=== PATIENT | female | born 1940 | race Caucasian/White ===

== ENCOUNTER → 2017-06-22 16:35 | Outpatient (CLI) | payer MEDICARE, OTHER ==
[2015-06-14 15:01] VITALS: BMI 37.5
[~2017-06-22 16:35] MED LIST: ACETAMINOPHEN500 M1 PO; ACTOS30 MG PO; AVAPRO300 MG PO; COUMADIN10 MG PO; CRESTOR20 MG PO; GLIPIZIDE10 MG PO; HYDROCODONE-APA1 TAB PO; PRILOSEC20 MG PO; XARELTO15 MG; ZIAC 10-6.25 MG1 TAB PO; ZYRTEC10 MG PO
== END | disposition home or self-care (01) ==
LOC: D.MAMMO 11:15
DX: Z12.31 Encounter for screening mammogram for malignant neoplasm of breast (principal)

== ENCOUNTER → 2017-07-16 16:54 | Outpatient (CLI) | payer MEDICARE, OTHER ==
[2015-06-14 15:01] VITALS: BMI 37.5
== END | disposition home or self-care (01) ==
LOC: D.MAMMO 09:00
DX: Z12.31 Encounter for screening mammogram for malignant neoplasm of breast (principal)

== ENCOUNTER → 2021-01-22 10:45 | Outpatient (CLI) | payer MEDICARE, OTHER ==
[2015-06-14 15:01] VITALS: BMI 37.5
== END | disposition home or self-care (01) ==
LOC: D.RAD → EDBD 10:45 → D.RAD 10:45
PROVIDERS: ATTEND Internal Medicine Gastroenterology
DX: R13.10 Dysphagia, unspecified (principal); R12 Heartburn